=== PATIENT | male | born 2000 | race Caucasian/White ===

== ENCOUNTER 2025-05-30 20:41 | Emergency (ER) | payer OTHER ==
[2025-05-30] MEDS: Ketorolac 60 MG/2 ML SDV IM ONE (21:07)
== END 2025-05-30 21:59 | disposition home or self-care (01) ==
LOC: JD.ED 20:41
DX: M54.50 Low back pain, unspecified (principal)
CPT/HCPCS: 72100; 96372; 99283; A9270; J1171; J1885; 99284